=== PATIENT | male | born 1970 | race Caucasian/White ===

== ENCOUNTER 2017-05-30 05:49 | Day surgery (SDC) | payer OTHER ==
[~2017-05-30] VITALS: Ht 180.3 cm; Wt 119.3 kg
[~2017-05-30 05:49] MED LIST: AMITRIPTYLINE H25 MG PO; HYDROCHLOROTH12.5 MG PO; NORVASC5 MG PO; PROPRANOLOL HCL40 MG PO; PROZAC20 MG PO; TRAZODONE HCL50 MG PO; ZOCOR20 MG PO
[2017-05-30] MEDS ORDERED: DILTIAZEM 24HR180 M1 PO (06:08)
[2017-05-30] MEDS ORDERED: FLOVENT DISKUS50 MCG INH (06:09)
[2017-05-30] MEDS ORDERED: REMERON45 MG PO (06:09)
[2017-05-30] MEDS ORDERED: SODIUM BICARBO650 MG PO (06:09)
[2017-05-30] MEDS ORDERED: VENTOLIN HFA18 GM INH (06:09)
[2017-05-30] MEDS ORDERED: METOPROLOL SUCC50 MG PO (06:10)
[2017-05-30] MEDS ORDERED: METOPROLOL SUCC25 MG PO (06:10)
[2017-05-30] MEDS ORDERED: LISINOPRIL20 MG PO (06:11)
[2017-05-30] MEDS ORDERED: DIFLUNISAL500 MG PO (06:11)
[2017-05-30] MEDS ORDERED: ULTRAM50 MG PO (06:11)
[2017-05-30] MEDS ORDERED: HYDROXYZINE HCL50 MG PO (06:12)
[2017-05-30] MEDS ORDERED: ASPIR 8181 MG PO (06:12)
--- NOTE | 2017-05-30 08:31 | NUR ---
05/30/17 0831 Denise Shankar 0822-PATIENT ARRIVED TO PACU ON 6L MASK O2 SAT 99% NONAROUSABLE. DRESSING TO LEFT HIP CDI ICE APPLIED. GOOD CAP REFILL AND PEDAL PULSE. WARM. GUARDS AT BEDSIDE.
--- NOTE | 2017-05-30 09:27 | NUR ---
LE 0915 PT RETURNED FROM PACU WIDE AWAKE C/O L HIP PAIN 04/24. EATING CRACKERS AND JELLO. 921 OXYCODONE 10MG PO GIVEN. SIPPING ON WATER. TRANSPORT GUARDS AT BEDSIDE.
[2017-05-30] MEDS ORDERED: NORCO 10-325 T1 EACH PO (09:46)
--- NOTE | 2017-05-31 08:18 | OR ---
[facility] [address], [place] [address] Signed DATE OF PROCEDURE: 05/30/17 PREOPERATIVE DIAGNOSIS: Stress fracture, left femoral neck. POSTOPERATIVE DIAGNOSIS: Stress fracture, left femoral neck. PROCEDURE Internal fixation left femoral neck stress fracture with TFN nail. SURGEON: Max Lemus MD. ANESTHESIA: General. SPECIMENS AND COMPLICATIONS: There were no specimens or complications. ESTIMATED BLOOD LOSS: Under 100 mL a day. PROCEDURE IN DETAIL The patient was taken to the operating room. After anesthesia was induced and airway secured, the patient was transitioned to the fracture table. He was made secured to the fracture table using the standard fracture boots and the left leg was placed in neutral alignment with the neutral medial rotation. He was then prepped and draped in routine sterile fashion. A 2 inch incision was made near the tip of the greater trochanter. Through this, the curved awl was introduced. Under fluoroscopic control, we were able to create a smaller defect in the tip of the greater trochanter. We then introduced the flexible intramedullary guide robb and impacted it until it was past the isthmus of the femur. We then reamed proximally with the large TFN reamer and then we reamed it distally up to 13 mm. We were then able to place a 12 mm nail. It was secured proximally with a 100 mm spiral blade and distally with a 34 mm 5.0 screw. At this point, we appeared to have a stable construct in good alignment and position. The wounds were gently irrigated and closed in a standard fashion. The patient was awakened and take to the recovery room where she arrived in stable condition. Counts were correct and antibiotic protocols were followed. MD RODRIGUEZ HigginsB/Tajl Electronically Signed By: MAX LEMUS MD 05/31/17 0818 PATIENT NAME: ADAM PEREZ OPERATIVE REPORT DATE OF : 66 PHYSICIAN: MAX LEMUS MD REPORT #: [id number] REPORT IS CONFIDENTIAL AND NOT TO BE RELEASED WITHOUT AUTHORIZATION [address] [place], [place] [address] Signed /[id number] cc: Yasir Holloway MD Electronically Signed By: MAX LEMUS MD 05/31/17 0818 PATIENT NAME: ADAM PEREZ OPERATIVE REPORT DATE OF : 66 PHYSICIAN: MAX LEMUS MD REPORT #: [id number] REPORT IS CONFIDENTIAL AND NOT TO BE RELEASED WITHOUT AUTHORIZATION
== END 2017-05-30 10:55 | disposition home or self-care (01) ==
LOC: DS 05:49
PROVIDERS: Orthopaedic Surgery
PROC: 0QS704Z Reposition Left Upper Femur with Internal Fixation Device, Open Approach (ICD-10-PCS; principal; 2017-05-30 06:45)
DX: M84.359A Stress fracture, hip, unspecified, initial encounter for fracture (principal)
CPT/HCPCS: 01220; 71010; 73501; C1713; C1769; J0330; J0690; J2405; J2704; J3010; J7120